=== PATIENT | female | born 1955 | race Caucasian/White ===

== ENCOUNTER 2016-08-26 12:05 | Inpatient (IN) | payer OTHER ==
[~2016-08-26] VITALS: Ht 180.3 cm; Wt 75.7 kg
--- NOTE | 2016-08-26 13:12 | DIAGNOSTIC IMAGING REPORT ---
PROCEDURE: XR CHEST 2 VIEW INDICATION: SHORTNESS OF BREATH TECHNIQUE: PA and lateral view. COMPARISON: Chest x-ray 02/16/2013. FINDINGS: Hyperinflation with small right upper and lower lobe infiltrates. Small right pleural effusion. Stable left upper lobe calcified granuloma. Heart size is normal but there is mild pulmonary vascular congestion. Bony thorax is unremarkable. IMPRESSION: 1. Right upper and lower lobe pneumonia with small right pleural effusion 2. Stable left upper lobe calcified granuloma 3. Mild pulmonary vascular congestion
--- NOTE | 2016-08-26 13:58 | ED ORDER SUMMARY ---
..... Patient: CIERA VELAZQUEZ OrderSheet [facility] VisitID: [id number] [place] [address] 61y, F Registration Date/Time: 08/26/2016 ORDER SHEET Weight: 74.8 kg (stated) Allergies: Latex, Seafood GENERAL ORDERS: Chest 2V (possible pneumonia) Urgent (12:47 08/26/2016 ABlanchette PA-C) (Ack 12:52 IJurca ER Tech1) (13:05 Micaela) RT Evaluation Stat (12:48 08/26/2016 ABlanchette PA-C) (Ack 12:52 IJurca ER Tech1) (13:20 LWhalen R.N.) CBC w Diff Urgent (13:27 08/26/2016 ABlanchette PA-C) (Ack 13:33 IJurca ER Tech1) (14:11 ALawrence ER Tech1) CMP Urgent (13:27 08/26/2016 ABlanchette PA-C) (Ack 13:33 IJurca ER Tech1) (14:11 ALawrence ER Tech1) UA-Culture if indicated Urgent (13:49 08/26/2016 LSullivan R.N. per protocol) (Ack 13:53 IJurca ER Tech1) (13:56 LSullivan R.N.) Blood Culture (Yes) (levaquin) Urgent (14:37 08/26/2016 ABlanchette PA-C) (Ack 14:45 IJurca ER Tech1) (15:00 LSullivan R.N.) Lactic Acid for Sepsis Protocol Urgent (14:38 08/26/2016 ABlanchette PA-C) (Ack 14:45 IJurca ER Tech1) (15:00 LSullivan R.N.) MEDICATION ORDERS: DuoNeb Neb Tx 1 unit dose (NOW) (12:49 08/26/2016 ABlanchette PA-C) (13:20 LWhalen R.N.) DuoNeb Neb Tx 1 unit dose (NOW) (13:17 08/26/2016 ABlanchette PA-C) (13:20 LWhalen R.N.) Levofloxacin PO 500 mg (NOW) (13:50 08/26/2016 ABlanchette PA-C) (13:56 LSullivan R.N.) Prednisone PO 40 mg (NOW) (13:51 08/26/2016 ABlanchette PA-C) (13:56 LSullivan R.N.) Nicoderm Topical 21 mg (NOW) (14:55 08/26/2016 LSullivan R.N. verbal order read back to ABlanchette PA-C) (14:56 LSullivan R.N.) IV FLUIDS: IV Saline Lock (12:37 08/26/2016 LSullivan R.N. verbal order read back to ABlanchette PA-C) (12:38 LSullivan R.N.) IV NS with Normal Saline 1 Liter: initial bolus none -, then 1000 mL/hr for X1 (NOW) (14:37 08/26/2016 ABlanchette PA-C) (14:43 LSullivan R.N.) Ceftriaxone IV 2 gm/50mL (NOW) (14:59 08/26/2016 ABlanchette PA-C) (15:35 LWhalen R.N.) ORDER SHEET NOTES: [Electronically signed by Norma Oconnell R.N. (18:41 08/26/2016)] [Electronically signed by Gayatri Gomes PA-C (00:38 08/27/2016)] [Electronically locked/signed by Norma Oconnell R.N. (18:41 08/26/2016)]
--- NOTE | 2016-08-26 13:58 | ED CLINICAL REPORT ---
Clinical Report - Physicians/Mid Levels [facility] [address] [place] [address] 08/26/2016 12:08 Patient: TEA VELAZQUEZ Time Seen: 12:33; initial patient contact. Arrived- By private vehicle. Historian- patient. HISTORY OF PRESENT ILLNESS Chief Complaint: COUGH, SINUS PAIN, FEVER, CHILLS and MUSCLE ACHES. This started 6 days ago; FEVER, CHILLS, SWEATS and "NOT FEELING WELL". pt with a history of asthma, copd, has been ill for a week, with fever, chills, is a smoker 1ppd, used her nebulizer this morning and had a little improvement in her breathing, is here accompanied by her mother and for evaluation. pt reports she has had pneumonia several times, and is still present and worsening. The illness is described as moderate. The patient has had a cough, difficulty breathing, nasal congestion, sinus pressure and sinus drainage. She has had chills and muscle aches. She has had a subjective fever of 103 F. Similar symptoms previously: Many times. Recent medical care: The patient was seen recently at another facility in a clinic. REVIEW OF SYSTEMS No nausea, vomiting or diarrhea. All systems otherwise negative, except as recorded above. PAST HISTORY See nurses notes. Moderate asthma. Has frequent asthma attacks. Moderate chronic obstructive pulmonary disease. She currently smokes. See old chart. Multiple episodes of pneumonia. Problems: Plantar Fasciitis. Eczema. Contact Dermatitis. URI. Lifestyle / Substance Problems. Fall. Contusion. Tetanus Status. Medications: Albuterol Sulfate HFA Inhalation 1 puff, 4x a day as needed. Singulair Oral 1, daily. Allergies: Latex.(hives) Seafood. SOCIAL HISTORY Heavy tobacco smoker (cigarette)- less than 1 pack per day. No alcohol use or drug use. FAMILY HISTORY Negative. ADDITIONAL NOTES The nursing notes have been reviewed with agreement regarding the chief complaint, HPI, ROS, PMH and patient medications and allergies. PHYSICAL EXAM Vital Signs: 08/26/2016 12:18 BP: 134/51. HR: 132. RR: 24. O2 saturation: 90%. Temp: 99 F. Pain level now: 07/10. Have been reviewed. Tachycardic. Oxygen saturation low. Appearance: Alert. No acute distress. Eyes: Pupils equal, round and reactive to light. Eyes normal inspection. ENT: Ears normal. Nose normal. Pharynx normal. Uvula midline. Neck: Normal inspection. Neck supple. CVS: Tachycardia. Heart sounds normal. Pulses normal. Respiratory: No respiratory distress. Mildly prolonged expirations. Expiratory and inspiratory mild bilateral wheezes diffusely. Bilateral rhonchi present diffusely, anteriorly and posteriorly. Abdomen: Soft and nontender. No organomegaly. Skin: Skin warm and dry. Normal skin color. No rash. Normal skin turgor. Extremities: No lower extremity edema. (has eczema to the arms/hands). Neuro: Oriented X 3. No motor deficit. No sensory deficit. LABS, X-RAYS, AND EKG Chest X-ray: Infiltrate in the right upper lobe. (Name: Tea Velazquez : 1955 MR#: [id number] Ordering Provider: ALBERTO MATOS Exam(s): XR CHEST 2 VIEW Date of Exam: 08/26/2016 __ PROCEDURE: XR CHEST 2 VIEW INDICATION: SHORTNESS OF BREATH TECHNIQUE: PA and lateral view. COMPARISON: Chest x-ray 02/16/2013. FINDINGS: Hyperinflation with small right upper and lower lobe infiltrates. Small right pleural effusion. Stable left upper lobe calcified granuloma. Heart size is normal but there is mild pulmonary vascular congestion. Bony thorax is unremarkable. IMPRESSION: 1. Right upper and lower lobe pneumonia with small right pleural effusion 2. Stable left upper lobe calcified granuloma 3. Mild pulmonary vascular congestion Electronically Final signed by:Awais Edwards MD 08/26/2016 1:12:28 PM Technologist: TRUNG). The X-rays were independently viewed by me, interpreted by the radiologist and contemporaneously by me and discussed with the radiologist. Interpretation time: 13:46. Laboratory Tests: UA-Culture if indicated: (RAFIA: 08/26/2016 13:46) ( WigRcvd 08/26/2016 14:26) Final results Test Result Flag Units (Reference) URINE COLOR DAVI URINE APPEARANCE SL CLOUDY URINE GLUCOSE NEGATIVE (NEGATIVE) URINE BILIRUBIN 1+ (NEGATIVE) URINE KETONE TRACE (NEGATIVE) URINE SPECIFIC GRAVITY >= 1.030 (1.010-1.030) URINE PH 6.0 (5.0-8.0) URINE PROTEIN 3+ (NEGATIVE) URINE UROBILINOGEN 4.0 EU/dL (0.2-1.0) The urobilinogen reagent area may react with interferingsubstances known to react with Raquel's reagent such asp-aminosalicylic acid and sulfonamides. Atypical colorreactions may be obtained in the presence of highconcentrations of p-aminobenzoic acid. The absence ofurobilinogen cannot be determined with this test. URINE NITRITE POSITIVE (NEGATIVE) URINE BLOOD 1+ (NEGATIVE) URINE LEUK ESTERASE TRACE (NEGATIVE) URINE RBC 0-1 rbc/hpf (0-1) URINE WBC 5-10 wbc/hpf (0-1) URINE EPITHELIAL CELLS 1-3 EPI/hpf (0-5) URINE BACTERIA MODERATE (2+ TO 3+) (NONE SEEN) URINE COMMENT CULTURE INDICATED 2+ MUCUSICTO TEST NEGATIVEURINE CULTURES ARE SET-UP BASED ON THE FOLLOWING CRITERIA:POSITIVE NITRITEPOSITIVE LEUKOCYTE ESTERASEGREATER THAN 10 WHITE BLOOD CELLSMODERATE (2+) OR GREATER BACTERIA CBC w Diff: (RAFIA: 08/26/2016 14:07) ( [facility] 08/26/2016 14:37) Final results Test Result Flag Units (Reference) WHITE BLOOD COUNT 12.1 H K/uL (4.5-11.5) RED BLOOD COUNT 4.35 M/uL (4.00-5.20) HEMOGLOBIN 13.3 gm/dL (12.0-16.0) HEMATOCRIT 39.4 % (36.0-46.0) MEAN CELL VOLUME 91 fL (80-100) MEAN CORPUSCULAR HGB 31 pg (26-34) MEAN CORPUSCULAR HGB CONC 34 g/dL (31-37) RED CELL DISTRIBUTION WIDTH 13.3 % (11.6-14.8) PLATELET COUNT 250 K/uL (150-400) NEUTROPHIL % 82.4 H % (50-75) LYMPH % 10.1 L % (25-40) MONO % 6.9 % (3-14) EOSINOPHIL % 0.4 % (0-4) BASOPHIL % 0.2 % (0-2) CMP: (RAFIA: 08/26/2016 14:07) ( MsgRcvd 08/26/2016 14:32) Final results Test Result Flag Units (Reference) GLUCOSE 143 H mg/dL (70-110) BUN 9 mg/dL (7-18) CREATININE 0.9 mg/dL (0.6-1.3) Estimated GFR >60 mL/min Estimated GFR- >60 mL/min Note: Persistent reduction over 3 months in eGFR<60 mL/min/1.73 m2 defines CKD. Patients with eGFR values>=60 mL/min/1.73 m2 may also have CKD if evidence ofpersistent proteinuria. Additional information may be foundat [email or web address].org. SODIUM 136 mmol/L (136-145) POTASSIUM 3.2 L mmol/L (3.5-5.1) CHLORIDE 98 mmol/L (98-107) CARBON DIOXIDE 23 mmol/L (21-32) CALCIUM 8.8 mg/dL (8.5-10.1) TOTAL PROTEIN 7.4 g/dL (6.4-8.2) ALBUMIN 2.9 L g/dL (3.3-5.0) BILIRUBIN, TOTAL 0.7 mg/dL (0.0-1.0) ALKALINE PHOSPHATASE 164 H U/L (46-116) AST (SGOT) 20 U/L (15-37) ALT (SGPT) 25 U/L (12-78) . Pulse Oximetry: 08/26/2016 12:18 O2 saturation: 90%. Interpretation: hypoxemia. PROGRESS AND PROCEDURES Course of Care: Evaluation after repeat exam. discussed inpatient disposition with Dr. Fitch, pt meets SIRS criteria for inpatient stay, low O2% 88-91%, HR 116, RR24 with Right upper and lower lobe pneumonia. pt was give IV NS, ceftriaxone 2gm IV, prednisone 40mg po, and a single dose of levaquin 500mg po. Patient is stable. Physical exam findings are improved. Symptoms better. Call placed to patient's primary care provider [phone] Rayo he states Dr. Thompson is hospitalist engineering document control clerk and should admit the patient under the current agreement with the hospital as he understands it, and states that if he is overwhelmed with admits, he will consent to take the patient. but needs to be cntacted again to clarify. Consult obtained from carpet layer. call placed 14:40. spoke to Dr. Thompson who states we should call Dr. Escobar. Call placed to Dr. Escobar [phone]. Patient/family counseled. Disposition: Admitted. CLINICAL IMPRESSION Moderate persistent asthma with an acute exacerbation and pneumonia. No status asthmaticus. Acute exacerbation of COPD (chronic bronchitis) Bacterial pneumonia with hypoxemia. Vital signs recorded and reviewed; empiric antibiotics given in the ED and prescribed. pt admitted to Dr. Estes. INSTRUCTIONS No strenuous activity. Rest. Drink plenty of fluids. Other diet: avoid all dairy and corn and soy and wheat. Do not smoke. (you have a right upper lobe pneumonia. you have been given Levaquin 500mg daily, as well as a course of prednisone. it is highly recommended that you stop smoking. follow up with your primary care provider this coming week. if you do not improve, you should return to the ER.). Warnings: Further evaluation is necessary. It is very important to follow up with a physician. GENERAL WARNINGS: Return or contact your physician immediately if your condition worsens or changes unexpectedly, if not improving as expected, or if other problems arise. Specifically return if breathing difficulty worsens or fails to improve. Your Current Medications: CONTINUE TAKING THE FOLLOWING MEDICATIONS: Albuterol Sulfate HFA Inhalation : 1 puff 4x a day, prn. Singulair Oral : 1 daily. Prescription Medications: Prednisone 20 mg: take 2 orally every day for 5 days. Dispense ten (10). No refills. Levaquin 500 mg: take 1 tab orally every day for 10 days. No refills. Substitution is permissible. Tessalon Perles 100 mg: take 1 orally every 8 hours as needed for cough. Dispense twenty (20). No refills. Substitution is permissible. Flovent HFA oral inhaler 220 mcg/spray: inhale 2 puffs every 24 hours for 4 weeks. Rinse mouth after use. Dispense one (1) unit. One refill. Substitution is permissible. Follow-up: Follow up with your doctor Sunday even if well. Reason for referral: pneumonia, copd, smoker. Understanding of the discharge instructions verbalized by patient and family. (Electronically signed by Alberto Matos PA-C 08/27/2016 0:38)
--- NOTE | 2016-08-26 13:58 | ED CLINICAL REPORT ---
Clinical Report - Physicians/Mid Levels [facility] [address] [place] [address] 08/26/2016 12:08 Patient: TEA VELAZQUEZ Time Seen: 12:33; initial patient contact. Arrived- By private vehicle. Historian- patient. HISTORY OF PRESENT ILLNESS Chief Complaint: COUGH, SINUS PAIN, FEVER, CHILLS and MUSCLE ACHES. This started 6 days ago; FEVER, CHILLS, SWEATS and "NOT FEELING WELL". pt with a history of asthma, copd, has been ill for a week, with fever, chills, is a smoker 1ppd, used her nebulizer this morning and had a little improvement in her breathing, is here accompanied by her mother and for evaluation. pt reports she has had pneumonia several times, and is still present and worsening. The illness is described as moderate. The patient has had a cough, difficulty breathing, nasal congestion, sinus pressure and sinus drainage. She has had chills and muscle aches. She has had a subjective fever of 103 F. Similar symptoms previously: Many times. Recent medical care: The patient was seen recently at another facility in a clinic. REVIEW OF SYSTEMS No nausea, vomiting or diarrhea. All systems otherwise negative, except as recorded above. PAST HISTORY See nurses notes. Moderate asthma. Has frequent asthma attacks. Moderate chronic obstructive pulmonary disease. She currently smokes. See old chart. Multiple episodes of pneumonia. Problems: Plantar Fasciitis. Eczema. Contact Dermatitis. URI. Lifestyle / Substance Problems. Fall. Contusion. Tetanus Status. Medications: Albuterol Sulfate HFA Inhalation 1 puff, 4x a day as needed. Singulair Oral 1, daily. Allergies: Latex.(hives) Seafood. SOCIAL HISTORY Heavy tobacco smoker (cigarette)- less than 1 pack per day. No alcohol use or drug use. FAMILY HISTORY Negative. ADDITIONAL NOTES The nursing notes have been reviewed with agreement regarding the chief complaint, HPI, ROS, PMH and patient medications and allergies. PHYSICAL EXAM Vital Signs: 08/26/2016 12:18 BP: 134/51. HR: 132. RR: 24. O2 saturation: 90%. Temp: 99 F. Pain level now: 07/10. Have been reviewed. Tachycardic. Oxygen saturation low. Appearance: Alert. No acute distress. Eyes: Pupils equal, round and reactive to light. Eyes normal inspection. ENT: Ears normal. Nose normal. Pharynx normal. Uvula midline. Neck: Normal inspection. Neck supple. CVS: Tachycardia. Heart sounds normal. Pulses normal. Respiratory: No respiratory distress. Mildly prolonged expirations. Expiratory and inspiratory mild bilateral wheezes diffusely. Bilateral rhonchi present diffusely, anteriorly and posteriorly. Abdomen: Soft and nontender. No organomegaly. Skin: Skin warm and dry. Normal skin color. No rash. Normal skin turgor. Extremities: No lower extremity edema. (has eczema to the arms/hands). Neuro: Oriented X 3. No motor deficit. No sensory deficit. LABS, X-RAYS, AND EKG Chest X-ray: Infiltrate in the right upper lobe. (Name: Tea Velazquez : 1955 MR#: [id number] Ordering Provider: ALBERTO MATOS Exam(s): XR CHEST 2 VIEW Date of Exam: 08/26/2016 __ PROCEDURE: XR CHEST 2 VIEW INDICATION: SHORTNESS OF BREATH TECHNIQUE: PA and lateral view. COMPARISON: Chest x-ray 02/16/2013. FINDINGS: Hyperinflation with small right upper and lower lobe infiltrates. Small right pleural effusion. Stable left upper lobe calcified granuloma. Heart size is normal but there is mild pulmonary vascular congestion. Bony thorax is unremarkable. IMPRESSION: 1. Right upper and lower lobe pneumonia with small right pleural effusion 2. Stable left upper lobe calcified granuloma 3. Mild pulmonary vascular congestion Electronically Final signed by:Awais Edwards MD 08/26/2016 1:12:28 PM Technologist: TRUNG). The X-rays were independently viewed by me, interpreted by the radiologist and contemporaneously by me and discussed with the radiologist. Interpretation time: 13:46. Laboratory Tests: UA-Culture if indicated: (RAFIA: 08/26/2016 13:46) ( SdgRcvd 08/26/2016 14:26) Final results Test Result Flag Units (Reference) URINE COLOR DAVI URINE APPEARANCE SL CLOUDY URINE GLUCOSE NEGATIVE (NEGATIVE) URINE BILIRUBIN 1+ (NEGATIVE) URINE KETONE TRACE (NEGATIVE) URINE SPECIFIC GRAVITY >= 1.030 (1.010-1.030) URINE PH 6.0 (5.0-8.0) URINE PROTEIN 3+ (NEGATIVE) URINE UROBILINOGEN 4.0 EU/dL (0.2-1.0) The urobilinogen reagent area may react with interferingsubstances known to react with Raquel's reagent such asp-aminosalicylic acid and sulfonamides. Atypical colorreactions may be obtained in the presence of highconcentrations of p-aminobenzoic acid. The absence ofurobilinogen cannot be determined with this test. URINE NITRITE POSITIVE (NEGATIVE) URINE BLOOD 1+ (NEGATIVE) URINE LEUK ESTERASE TRACE (NEGATIVE) URINE RBC 0-1 rbc/hpf (0-1) URINE WBC 5-10 wbc/hpf (0-1) URINE EPITHELIAL CELLS 1-3 EPI/hpf (0-5) URINE BACTERIA MODERATE (2+ TO 3+) (NONE SEEN) URINE COMMENT CULTURE INDICATED 2+ MUCUSICTO TEST NEGATIVEURINE CULTURES ARE SET-UP BASED ON THE FOLLOWING CRITERIA:POSITIVE NITRITEPOSITIVE LEUKOCYTE ESTERASEGREATER THAN 10 WHITE BLOOD CELLSMODERATE (2+) OR GREATER BACTERIA CBC w Diff: (RAFIA: 08/26/2016 14:07) ( [facility] 08/26/2016 14:37) Final results Test Result Flag Units (Reference) WHITE BLOOD COUNT 12.1 H K/uL (4.5-11.5) RED BLOOD COUNT 4.35 M/uL (4.00-5.20) HEMOGLOBIN 13.3 gm/dL (12.0-16.0) HEMATOCRIT 39.4 % (36.0-46.0) MEAN CELL VOLUME 91 fL (80-100) MEAN CORPUSCULAR HGB 31 pg (26-34) MEAN CORPUSCULAR HGB CONC 34 g/dL (31-37) RED CELL DISTRIBUTION WIDTH 13.3 % (11.6-14.8) PLATELET COUNT 250 K/uL (150-400) NEUTROPHIL % 82.4 H % (50-75) LYMPH % 10.1 L % (25-40) MONO % 6.9 % (3-14) EOSINOPHIL % 0.4 % (0-4) BASOPHIL % 0.2 % (0-2) CMP: (RAFIA: 08/26/2016 14:07) ( MsgRcvd 08/26/2016 14:32) Final results Test Result Flag Units (Reference) GLUCOSE 143 H mg/dL (70-110) BUN 9 mg/dL (7-18) CREATININE 0.9 mg/dL (0.6-1.3) Estimated GFR >60 mL/min Estimated GFR- >60 mL/min Note: Persistent reduction over 3 months in eGFR<60 mL/min/1.73 m2 defines CKD. Patients with eGFR values>=60 mL/min/1.73 m2 may also have CKD if evidence ofpersistent proteinuria. Additional information may be foundat [email or web address].org. SODIUM 136 mmol/L (136-145) POTASSIUM 3.2 L mmol/L (3.5-5.1) CHLORIDE 98 mmol/L (98-107) CARBON DIOXIDE 23 mmol/L (21-32) CALCIUM 8.8 mg/dL (8.5-10.1) TOTAL PROTEIN 7.4 g/dL (6.4-8.2) ALBUMIN 2.9 L g/dL (3.3-5.0) BILIRUBIN, TOTAL 0.7 mg/dL (0.0-1.0) ALKALINE PHOSPHATASE 164 H U/L (46-116) AST (SGOT) 20 U/L (15-37) ALT (SGPT) 25 U/L (12-78) . Pulse Oximetry: 08/26/2016 12:18 O2 saturation: 90%. Interpretation: hypoxemia. PROGRESS AND PROCEDURES Course of Care: Evaluation after repeat exam. discussed inpatient disposition with Dr. Fitch, pt meets SIRS criteria for inpatient stay, low O2% 88-91%, HR 116, RR24 with Right upper and lower lobe pneumonia. pt was give IV NS, ceftriaxone 2gm IV, prednisone 40mg po, and a single dose of levaquin 500mg po. Patient is stable. Physical exam findings are improved. Symptoms better. Call placed to patient's primary care provider [phone] Rayo he states Dr. Thompson is hospitalist front end architect and should admit the patient under the current agreement with the hospital as he understands it, and states that if he is overwhelmed with admits, he will consent to take the patient. but needs to be cntacted again to clarify. Consult obtained from box bender. call placed 14:40. spoke to Dr. Thompson who states we should call Dr. Escobar. Call placed to Dr. Escobar 1425. Patient/family counseled. Disposition: Admitted. CLINICAL IMPRESSION Moderate persistent asthma with an acute exacerbation and pneumonia. No status asthmaticus. Acute exacerbation of COPD (chronic bronchitis) Bacterial pneumonia with hypoxemia. Vital signs recorded and reviewed; empiric antibiotics given in the ED and prescribed. pt admitted to Dr. Estes. INSTRUCTIONS No strenuous activity. Rest. Drink plenty of fluids. Other diet: avoid all dairy and corn and soy and wheat. Do not smoke. (you have a right upper lobe pneumonia. you have been given Levaquin 500mg daily, as well as a course of prednisone. it is highly recommended that you stop smoking. follow up with your primary care provider this coming week. if you do not improve, you should return to the ER.). Warnings: Further evaluation is necessary. It is very important to follow up with a physician. GENERAL WARNINGS: Return or contact your physician immediately if your condition worsens or changes unexpectedly, if not improving as expected, or if other problems arise. Specifically return if breathing difficulty worsens or fails to improve. Your Current Medications: CONTINUE TAKING THE FOLLOWING MEDICATIONS: Albuterol Sulfate HFA Inhalation : 1 puff 4x a day, prn. Singulair Oral : 1 daily. Prescription Medications: Prednisone 20 mg: take 2 orally every day for 5 days. Dispense ten (10). No refills. Levaquin 500 mg: take 1 tab orally every day for 10 days. No refills. Substitution is permissible. Tessalon Perles 100 mg: take 1 orally every 8 hours as needed for cough. Dispense twenty (20). No refills. Substitution is permissible. Flovent HFA oral inhaler 220 mcg/spray: inhale 2 puffs every 24 hours for 4 weeks. Rinse mouth after use. Dispense one (1) unit. One refill. Substitution is permissible. Follow-up: Follow up with your doctor Sunday even if well. Reason for referral: pneumonia, copd, smoker. Understanding of the discharge instructions verbalized by patient and family. (Electronically signed by Alberto Matos PA-C 08/27/2016 0:38)
--- NOTE | 2016-08-26 13:58 | ED NURSING NOTES ---
Clinical Report - Nurses [facility] [address] [place] [address] 08/26/2016 12:08 Patient: CIERA VELAZQUEZ TRIAGE Triage time 12:18. Acuity: LEVEL 3. Chief Complaint: FEVER, CHILLS, SWEATS and "NOT FEELING WELL". Alert. --12:26 Norma Oconnell R.N. 12:18 08/26/16. BP: 134/51. HR: 132. RR: 24. O2 saturation: 90% on room air. Temp: 99 F. Pain level now: 07/10. Additional comments: O2 placed at 2LNC. --12:26 Norma Oconnell R.N. Weight: 74.8 kg stated. Height/Length: 71 inches Per Patient. BMI: 23. --12:22 Norma Oconnell R.N. Medications Albuterol Sulfate HFA Inhalation 1 puff, 4x a day as needed. Singulair Oral 1, daily. --12:25 Norma Oconnell R.N. Allergies Latex.(hives) Seafood. --12:25 Norma Oconnell R.N. History Arrived by private vehicle. Historian: patient. Accompanied by spouse. Primary physician (Shawn). Onset. (6 days ago). She has had a sore throat and a cough and headache. Treatment MECHANICAL MAINTENANCE TECHNICIAN: (Aleve). PAST MEDICAL HX: The patient is post-menopausal. SOCIAL HX: Heavy tobacco smoker (cigarette)- 1 pack per day. No alcohol use or drug use. The patient was not exposed to MRSA. NUTRITIONAL RISK ASSESSMENT: The nutritional risk assessment revealed no deficiencies. FUNCTIONAL ASSESSMENT: Functional assessment: no impairments noted. ABUSE ASSESSMENT: Abuse assessment: ('yes") The patient was asked "Do you feel safe in your home?". --12:26 Norma Oconnell R.N. PROBLEMS: Plantar Fasciitis. Eczema. Contact Dermatitis. URI. Lifestyle / Substance Problems. Fall. Contusion. Diverticulitis. Bronchitis. Pneumonia. Asthma. COPD - Chronic Obstructive Pulmonary Disease. --12:24 Norma Oconnell R.N. ADDITIONAL SURGERIES: Colon surgery . . Hysterectomy. Leg surgery. --12:24 Norma Oconnell R.N. Interventions ID band on patient. To room. --12:26 Norma Oconnell R.N. PHYSICAL ASSESSMENT 12:38 08/26/16. Patient gowned. GENERAL / NEURO / PSYCH: Alert. Oriented X 4. Appears anxious. --12:38 Norma Oconnell R.N. NURSING PROGRESS NOTES 12:38 08/26/2016 Site #1 started via IV in the right hand with an 20g angiocath, with aseptic technique and good blood return; one attempt. Saline lock flushed with 10 mL saline (unable to draw any blood from IV SITE). --12:38 Norma Oconnell R.N. 12:38 08/26/16. Patient identifiers checked. Call light placed in reach. Bed placed in lowest position. Patient ready for evaluation- chart flagged. --12:38 Norma Oconnell R.N. 13:10 08/26/2016 Duoneb (Ipratropium-Albuterol) Neb TX Nebulizer 1 unit dose given. Given by the respiratory therapist. Allergies verified and confirmed 5 rights. --13:20 Tiffanie Hutchinson R.N. 13:20 08/26/2016 Duoneb (Ipratropium-Albuterol) Neb TX Nebulizer 1 unit dose given. Given by the respiratory therapist. Allergies verified and confirmed 5 rights. --13:20 Tiffanie Hutchinson R.N. 13:49 08/26/16. Patient ID band checked for patient name and birthdate: patient confirmed. Clean catch urine collected with return of destini-colored clear urine; sample sent to lab. --13:49 Norma Oconnell R.N. 13:56 08/26/2016 Levofloxacin PO 500 mg given. Allergies verified and confirmed 5 rights. --13:56 Norma Oconnell R.N. 13:56 08/26/2016 Prednisone PO 40 mg given. Confirmed 5 rights. --13:56 Norma Oconnell R.N. 14:35 08/26/16. BP: 106/62. HR: 116. RR: 20. O2 saturation: 88% on room air. Temp: 98.2 F. Pain level now: 0/10. --14:36 Norma Oconnell R.N. 14:43 08/26/2016 Started bag #1 1000 mL IV Fluids IV NS (Saline); at 1000 mL/hr via site #1 via IV pump. Confirmed 5 rights. --14:43 Norma Oconnell R.N. 14:43 08/26/16. HR: 110. O2 saturation: 94% on nasal cannula at 3 liters/minute. --14:44 Norma Oconnell R.N. 14:56 08/26/2016 NICODERM Topical 21 mg. Applied to the right upper arm. Allergies verified and confirmed 5 rights. --14:56 Norma Oconnell R.N. 15:35 08/26/2016 Started 2 gm of Ceftriaxone IVPB in bag #1 50 mL; at 150 mL/hr over 1 hour(s) via site #1 via IV pump. Allergies verified and confirmed 5 rights. IV patency established. IV site checked: no pain, redness, or swelling. IV flushed thoroughly pre- and post-medication administration. --15:35 Tiffanie Hutchinson R.N. 15:36 08/26/2016 IV Fluids IV NS Discontinued: bag #1 infused. Total amount infused: 1000 mL. IV patency established. IV site checked: no pain, redness, or swelling. IV flushed thoroughly. --15:37 Tiffanie Hutchinson R.N. ( Dr Estes with patient). --17:05 Norma Oconnell R.N. Overall patient status is improved- she states feels better. --17:27 Norma Oconnell R.N. 17:27 08/26/16. BP: 119/59. HR: 101. RR: 18. O2 saturation: 93% on nasal cannula at 3 liters/minute. --17:27 Norma Oconnell R.N. DISPOSITION / DISCHARGE 18:30 08/26/16. Report was given to a nurse via a phone call. Report included patient's care, treatment, medications, reviewed medication reconcilliation, and condition (including any recent changes or anticipated changes). All questions were answered. Report was acknowledged and care was transferred. --18:30 Norma Oconnell R.N. ( Pt's dinner tray was sent to her room, 201). --18:30 Norma Oconnell R.N. 18:30 08/26/16. BP: 119/50. HR: 101. RR: 18. O2 saturation: 94%. Pain level now: 0/10. --18:33 Norma Oconnell R.N. 18:40 08/26/16. ( F.T. transported pt to floor, O2 hooked up to O2 tank at 2L per minute.). --18:40 Norma Oconnell R.N. Departure time: 18:40. --18:40 Norma Oconnell R.N. Locked/Released at 08/26/2016 18:41 by Norma Oconnell R.N.
--- NOTE | 2016-08-26 13:58 | ED ORDER SUMMARY ---
..... Patient: CIERA VELAZQUEZ OrderSheet [facility] VisitID: [id number] [place] [address] 61y, F Registration Date/Time: 08/26/2016 ORDER SHEET Weight: 74.8 kg (stated) Allergies: Latex, Seafood GENERAL ORDERS: Chest 2V (possible pneumonia) Urgent (12:47 08/26/2016 ABlanchette PA-C) (Ack 12:52 IJurca ER Tech1) (13:05 Micaela) RT Evaluation Stat (12:48 08/26/2016 ABlanchette PA-C) (Ack 12:52 IJurca ER Tech1) (13:20 LWhalen R.N.) CBC w Diff Urgent (13:27 08/26/2016 ABlanchette PA-C) (Ack 13:33 IJurca ER Tech1) (14:11 ALawrence ER Tech1) CMP Urgent (13:27 08/26/2016 ABlanchette PA-C) (Ack 13:33 IJurca ER Tech1) (14:11 ALawrence ER Tech1) UA-Culture if indicated Urgent (13:49 08/26/2016 LSullivan R.N. per protocol) (Ack 13:53 IJurca ER Tech1) (13:56 LSullivan R.N.) Blood Culture (Yes) (levaquin) Urgent (14:37 08/26/2016 ABlanchette PA-C) (Ack 14:45 IJurca ER Tech1) (15:00 LSullivan R.N.) Lactic Acid for Sepsis Protocol Urgent (14:38 08/26/2016 ABlanchette PA-C) (Ack 14:45 IJurca ER Tech1) (15:00 LSullivan R.N.) MEDICATION ORDERS: DuoNeb Neb Tx 1 unit dose (NOW) (12:49 08/26/2016 ABlanchette PA-C) (13:20 LWhalen R.N.) DuoNeb Neb Tx 1 unit dose (NOW) (13:17 08/26/2016 ABlanchette PA-C) (13:20 LWhalen R.N.) Levofloxacin PO 500 mg (NOW) (13:50 08/26/2016 ABlanchette PA-C) (13:56 LSullivan R.N.) Prednisone PO 40 mg (NOW) (13:51 08/26/2016 ABlanchette PA-C) (13:56 LSullivan R.N.) Nicoderm Topical 21 mg (NOW) (14:55 08/26/2016 LSullivan R.N. verbal order read back to ABlanchette PA-C) (14:56 LSullivan R.N.) IV FLUIDS: IV Saline Lock (12:37 08/26/2016 LSullivan R.N. verbal order read back to ABlanchette PA-C) (12:38 LSullivan R.N.) IV NS with Normal Saline 1 Liter: initial bolus none -, then 1000 mL/hr for X1 (NOW) (14:37 08/26/2016 ABlanchette PA-C) (14:43 LSullivan R.N.) Ceftriaxone IV 2 gm/50mL (NOW) (14:59 08/26/2016 ABlanchette PA-C) (15:35 LWhalen R.N.) ORDER SHEET NOTES: [Electronically signed by Norma Oconnell R.N. (18:41 08/26/2016)] [Electronically signed by Gayatri Gomes PA-C (00:38 08/27/2016)] [Electronically locked/signed by Norma Oconnell R.N. (18:41 08/26/2016)]
--- NOTE | 2016-08-26 18:08 | Progress Note ---
Subjective General Admission History and Physical Examination Acute Care In-Patient Patient Name: Tea Guevara Admission Date: 08/26/2016 Primary Care Provider: Dr. Escobar and Tana Mattson PAC Attending Physician: Antony Thompson M.D. Admitting Physician: Prateek Estes MD] Code Status: Full code Room: SUBJECTIVE Historian: Patient's gave a Good formal history Reliability: Good Reliability Chief Complaint: Shortness of breath Coughing Wheeze Fever History of Present Illness: The patient is a 61-year-old white female with a past medical history of COPD, osteoarthritic joint disease, eczema who presented to the [facility] emergency Department earlier in the day with shortness of breath, cough, wheeze. Patient reports of an onset with cough, fevers, shortness of breath since 5 days previous. Patient had increased her albuterol usage over the past 4 days. Patient reported no improvement on home therapy. Therefore, came into the urgent care clinic to review and discuss alternatives to her home care. From the urgent care. Patient was sent to [facility] emergency Department. Emergency department reviewed the examination, labs and x-rays and identified infiltrates in the right upper and lower lobe, associated tachycardic and tachypnea on exam. Elevated white count 12.1 and failure of outpatient care. Patient is admitted under SIRS criteria with pneumonia and COPD exacerbation. PAST MEDICAL HISTORY Illnesses: 1. COPD 2. Eczema 3. Osteoarthritis of the Lower extremity Allergies: 1. Antibiotic, that is no longer on the market Medications: 1. Ventolin 1-2 puffs every 4 hours as needed for cough and wheeze 2. Advil for pain Surgery: 1. Bowel resection 2004 2. Hysterectomy 20 years ago 3. 30+ years ago 4. Right lower extremity neuroma removal Injuries: 1. Bilateral foot injury related to work and activities. Currently on disability from work. Hospitalizations: 1. Hospitalization [facility] for pneumonia. Previous to that was for bowel resection. FAMILY HISTORY Parents: 1. Father, at the age of 59 due to heart disease, 2. Mother, currently living; no overt health history Children: 1. 3 children Other significant family history: None SOCIAL HISTORY 1. Marital Status: 30+ years marriage Dusty 2. [employer]: Not known 3. Education: High school 4. Employment History: As restaurant employee for multiple years; full-time disability due to lower extremity injury 5. Occupational health exposures: Unknown HABITS 1. Tobacco: History of tobacco smoking; 20+ years of smoking 2. Drugs: None 3. Alcohol: None 4. Caffeine: Intermittent HEALTH SUPERVISION Item/Test Followed by primary care provider IMMUNIZATIONS: Detailed record not available ADVANCED DIRECTIVES: 1. Living well: None 2. POLST: None 3. Code Status: Full code; call family and Dusty to bedside 4. Durable Power Carpet Technician Health care: Unavailable 5. Donor card: Unknown REVIEW OF SYSTEMS Remarkable for those things stated in the history of present illness and past medical history. Review of system completed with the following notable findings : ROS Constitutional Fever, Weakness. Eyes Denies: Vision Change. Respiratory Cough, SOB w/exertion, Wheezing, Pleuritic Pain. Cardiovascular Other (tachycardia). Gastrointestinal Denies: Abdominal Pain, Diarrhea. Musculoskeletal Back Pain, Other (lower extremity pain). Skin Other (eczema). Neurological Denies: Incoordination, Change in speech, Confusion. Physical Exam Vital Signs / I&Os Vital Signs Date Time Temp Pulse Resp B/P Pulse O2 O2 Flow FiO2 Ox Delivery Rate 08/26 1753 3.0 08/26 1320 3.0 08/26 1312 2.0 Pressure 134/51, heart rate 110, respiratory rate 22, O2 sats 93%, 2 L nasal cannula General Appearance Oriented X3, Cooperative, Mild distress HEENT Atraumatic, EOMI Lungs sonorous rhonchi bilaterally. Rales, right upper and lower lobe End- expiratory wheeze upper and lower bilateral Neck No JVD Cardiovascular Regular rate and rhythm, Normal S1 and S2, tachycardia Abdomen Soft, No tenderness, No rebound Rectal deferred Extremities edematous changes in the upper and lower extremity. Hyper erythema changes in the bilateral hands and wrists along with hyperkeratosis, signs of eczema, bilateral wrists and hands. Hyperkeratosis in the lower extremity. Skin skin is peeling rough in the upper or lower extremity signs of eczema; pre- dominantly on hands and wrists. Neurological Normal speech Psych/Mental Status Mental status normal LAB Results Laboratory Tests 08/26 08/26 08/26 1346 1407 1457 Chemistry Plasma Sodium (136 - 145 mmol/L) 136 Plasma Potassium (3.5 - 5.1 mmol/L) 3.2 Plasma Chloride (98 - 107 mmol/L) 98 CO2 (Enzymatic) (21 - 32 mmol/L) 23 BUN (7 - 18 mg/dL) 9 Creatinine (0.6 - 1.3 mg/dL) 0.9 Est GFR ( Amer) (mL/min) >60 Est GFR (Non-Af Amer) (mL/min) >60 Glucose (70 - 110 mg/dL) 143 Lactic Acid (0.4 - 2.0 mmol/L) 2.0 Plasma Calcium (8.5 - 10.1 mg/dL) 8.8 Total Bilirubin (0.0 - 1.0 mg/dL) 0.7 AST (15 - 37 U/L) 20 ALT (12 - 78 U/L) 25 Alkaline Phosphatase (46 - 116 U/L) 164 Total Protein (6.4 - 8.2 g/dL) 7.4 Albumin (3.3 - 5.0 g/dL) 2.9 Hematology WBC (4.5 - 11.5 K/uL) 12.1 RBC (4.00 - 5.20 M/uL) 4.35 Hgb (12.0 - 16.0 gm/dL) 13.3 Hct (36.0 - 46.0 %) 39.4 MCV (80 - 100 fL) 91 MCH (26 - 34 pg) 31 RDW (11.6 - 14.8 %) 13.3 Neut % (Auto) (50 - 75 %) 82.4 Lymph % (Auto) (25 - 40 %) 10.1 [place] % (Auto) (3 - 14 %) 6.9 Eos % (Auto) (0 - 4 %) 0.4 Baso % (Auto) (0 - 2 %) 0.2 Plt Count, EDTA (150 - 400 K/uL) 250 PUBS MCHC (31 - 37 g/dL) 34 Urines Urine Color DAVI Urine Appearance SL CLOUDY Urine pH (5.0 - 8.0) 6.0 Ur Specific Hunt (1.010 - 1.030) >= 1.030 Urine Protein (NEGATIVE) 3+ Urine Ketones (NEGATIVE) TRACE Urine Blood (NEGATIVE) 1+ Urine Nitrite (NEGATIVE) POSITIVE Urine Bilirubin (NEGATIVE) 1+ Urine Urobilinogen (0.2 - 1.0 EU/dL) 4.0 Ur Leukocyte Esterase (NEGATIVE) TRACE Urine RBC (0 - 1 rbc/hpf) 0-1 Urine WBC (0 - 1 wbc/hpf) 5-10 Ur Epithelial Cells (0 - 5 EPI/hpf) 1-3 Urine Bacteria (NONE SEEN) MODERATE (2+ TO 3+) Urine Glucose (NEGATIVE) NEGATIVE Urine Comment CULTURE INDICATED Microbiology Date/Time Procedure - Status Source Growth 08/26 174 Respiratory Culture - ORD SPUTUM 08/26 1744 Culture and Gram Stain - ORD SPUTUM 08/26 1457 Blood Culture - RECD BLOOD 08/26 1346 Urine Culture - RECD URINE CC Imaging Chest x-ray 08/26/2016 IMPRESSION: 1. Right upper and lower lobe pneumonia with small right pleural effusion 2. Stable left upper lobe calcified granuloma 3. Mild pulmonary vascular congestion Assessment and Plan Problem List 1. COPD (chronic obstructive pulmonary disease) Plan Service criteria with COPD and right upper and lower lobe pneumonia. The long history of smoking. Patient on disability from work due to pulmonary status and lower extremity. Patient continues to have shortness of breath with activity. Progressive worsening with recent onset of illness. She was fevers along with intolerance to activity due to shortness of breath. Patient started SIRS protocol. Serial lab values including White cell count and Lactic acid Starting Antibiotics including cephalosporins and fluoroquinolones Following blood cultures. Consistent findings suggestive of right upper and lower lobe pneumonia. Community-acquired pneumonia. Monitor vitals and subjective progress. Discharge home with appropriate by mouth therapy. Smoking cessation encouraged. May consider home O2 based on O2 usage. Keep the O2 sats above 90-92%. Patient is on a nicotine patch while inpatient Long-standing COPD Duo.- Nebs every 6 hours, along with albuterol as needed Continue the Solu-Medrol 60 mg every 8 hours Light hydration 2. SIRS (systemic inflammatory response syndrome) Plan As discussed; SIRS criteria Blood cultures, urinary cultures Dual coverage antibiotic Serial white count in monitor vitals Maintaining adequate hydration Treat pneumonia. Continue with O2 for maintaining adequate oxygen load. 3. SOB (shortness of breath) Plan Shortness of breath with activity. Acute worsening with recent illness History of COPD, now with COPD exacerbation and SIRS Antibiotic therapy along with oxygen support and additional her with Cipro. E&M Codes Rounding: Inpt-High/72397 Admission: Inpt-High/59967
[2016-08-26 18:58] VITALS: BP 133/68
--- NOTE | 2016-08-26 19:41 | Progress Note ---
Subjective General ADVANCED CARE PLAN History of Present Illness 61-year-old white female with a past medical history of COPD, osteoarthritic joint disease, eczema who presented to the [facility] emergency Department earlier in the day with shortness of breath, cough, wheeze. Emergency department reviewed and examination, labs and x-rays with notable infiltrates in the right upper and lower lobe, associated tachycardic and tachypnea on exam. Elevated white count 12.1 and failure of outpatient care. Patient is admitted under SIRS criteria with pneumonia and COPD exacerbation. A discussion was undertaken with the patient regarding previous advance care arrangements/decisions. The following advanced directives were noted by the patient and discussed with me at the time of admission. ADVANCED DIRECTIVES: 1. Living well: None 2. POLST: None 3. Code Status: Full code; call family and Dusty to bedside 4. Durable Power Geek Squad Manager Health care: Unavailable 5. Donor card: Unknown The patient has expressed interest in not pursuing any form of resuscitation at this time. She has opted not to pursue intubation/mechanical ventilation, CPR, electrical cardioversion, or life-sustaining efforts involving drugs at the time of cardiopulmonary arrest. The patient's wishes were documented in the chart and orders regarding the patient's wishes entered into the [employer] CPOE system. The "Advance Care Plan Document" was not distributed to patient to discuss with her family. Less than 30 minutes was spent in performing the above tasks and documentation of the patient's advanced care plan.
--- NOTE | 2016-08-26 19:41 | Progress Note ---
Subjective General ADVANCED CARE PLAN History of Present Illness 61-year-old white female with a past medical history of COPD, osteoarthritic joint disease, eczema who presented to the [facility] emergency Department earlier in the day with shortness of breath, cough, wheeze. Emergency department reviewed and examination, labs and x-rays with notable infiltrates in the right upper and lower lobe, associated tachycardic and tachypnea on exam. Elevated white count 12.1 and failure of outpatient care. Patient is admitted under SIRS criteria with pneumonia and COPD exacerbation. A discussion was undertaken with the patient regarding previous advance care arrangements/decisions. The following advanced directives were noted by the patient and discussed with me at the time of admission. ADVANCED DIRECTIVES: 1. Living well: None 2. POLST: None 3. Code Status: Full code; call family and Dusty to bedside 4. Durable Power Business Performance Advisor Health care: Unavailable 5. Donor card: Unknown The patient has expressed interest in not pursuing any form of resuscitation at this time. She has opted not to pursue intubation/mechanical ventilation, CPR, electrical cardioversion, or life-sustaining efforts involving drugs at the time of cardiopulmonary arrest. The patient's wishes were documented in the chart and orders regarding the patient's wishes entered into the [employer] CPOE system. The "Advance Care Plan Document" was not distributed to patient to discuss with her family. Less than 30 minutes was spent in performing the above tasks and documentation of the patient's advanced care plan.
[2016-08-26 22:18] VITALS: BP 103/59
--- NOTE | 2016-08-27 00:39 | ED MED RECONCILIATION SUMMARY ---
Patient: CIERA VELAZQUEZ Medication Reconciliation Report [facility] VisitID: [id number] [place] [address] 61y, F Registration Date/Time: 08/26/2016 Weight: 74.8 kg Height/Length: 71 in. BMI: 23.0 ALLERGIES: Latex, Seafood The patient's Home Medications are listed below: CONTINUE TAKING THE FOLLOWING MEDICATIONS: Albuterol Sulfate HFA Inhalation 1 puff, 4x a day Singulair Oral 1, daily The source(s) of the original Home Medication information: Not obtained. The following Medications were given to the patient in the Emergency Department: Duoneb [Neb Tx] Neb TX 1 unit dose, administered: 08/26/2016 1:10:00 PM Duoneb [Neb Tx] Neb TX 1 unit dose, administered: 08/26/2016 1:20:00 PM Levofloxacin [PO] PO 500 mg, administered: 08/26/2016 1:56:00 PM Prednisone [PO] PO 40 mg, administered: 08/26/2016 1:56:00 PM IV NS IV Fluids bolus 0, then 1000 mL/hr, administered: 08/26/2016 2:43:00 PM NICODERM [TOPICAL] Topical 21 mg, administered: 08/26/2016 2:56:00 PM Ceftriaxone [IVPB] IVPB bolus 0, then 2 gm 150 mL/hr, administered: 08/26/2016 3:35:00 PM The following Medications were prescribed to the patient: Prednisone 20 mg: take 2 orally every day for 5 days. Dispense ten (10). No refills. -- Gayatri Gomes PA-C Levaquin 500 mg: take 1 tab orally every day for 10 days. No refills. Substitution is permissible. -- Gayatri Gomes PA-C Tessalon Perles 100 mg: take 1 orally every 8 hours as needed for cough. Dispense twenty (20). No refills. Substitution is permissible. -- Gayatri Gomes PA-C Flovent HFA oral inhaler 220 mcg/spray: inhale 2 puffs every 24 hours for 4 weeks. Rinse mouth after use. Dispense one (1) unit. One refill. Substitution is permissible. -- Gayatri Gomes PA-C
--- NOTE | 2016-08-27 00:39 | ED MED RECONCILIATION SUMMARY ---
Patient: CIERA VELAZQUEZ Medication Reconciliation Report [facility] VisitID: [id number] [place] [address] 61y, F Registration Date/Time: 08/26/2016 Weight: 74.8 kg Height/Length: 71 in. BMI: 23.0 ALLERGIES: Latex, Seafood The patient's Home Medications are listed below: CONTINUE TAKING THE FOLLOWING MEDICATIONS: Albuterol Sulfate HFA Inhalation 1 puff, 4x a day Singulair Oral 1, daily The source(s) of the original Home Medication information: Not obtained. The following Medications were given to the patient in the Emergency Department: Duoneb [Neb Tx] Neb TX 1 unit dose, administered: 08/26/2016 1:10:00 PM Duoneb [Neb Tx] Neb TX 1 unit dose, administered: 08/26/2016 1:20:00 PM Levofloxacin [PO] PO 500 mg, administered: 08/26/2016 1:56:00 PM Prednisone [PO] PO 40 mg, administered: 08/26/2016 1:56:00 PM IV NS IV Fluids bolus 0, then 1000 mL/hr, administered: 08/26/2016 2:43:00 PM NICODERM [TOPICAL] Topical 21 mg, administered: 08/26/2016 2:56:00 PM Ceftriaxone [IVPB] IVPB bolus 0, then 2 gm 150 mL/hr, administered: 08/26/2016 3:35:00 PM The following Medications were prescribed to the patient: Prednisone 20 mg: take 2 orally every day for 5 days. Dispense ten (10). No refills. -- Gayatri Gomes PA-C Levaquin 500 mg: take 1 tab orally every day for 10 days. No refills. Substitution is permissible. -- Gayatri Gomes PA-C Tessalon Perles 100 mg: take 1 orally every 8 hours as needed for cough. Dispense twenty (20). No refills. Substitution is permissible. -- Gayatri Gomes PA-C Flovent HFA oral inhaler 220 mcg/spray: inhale 2 puffs every 24 hours for 4 weeks. Rinse mouth after use. Dispense one (1) unit. One refill. Substitution is permissible. -- Gayatri Gomes PA-C
--- NOTE | 2016-08-27 00:39 | ED DISCHARGE INSTRUCTIONS ---
Patient: CIERA VELAZQUEZ General Instructions [facility] VisitID: [id number] [place] [address] 61y, F Registration Date/Time: 08/26/2016 Moderate persistent asthma with an acute exacerbation and pneumonia. No status asthmaticus. Acute exacerbation of COPD (chronic bronchitis) Bacterial pneumonia with hypoxemia. Vital signs recorded and reviewed; empiric antibiotics given in the ED and prescribed. pt admitted to Dr. Estes. INSTRUCTIONS No strenuous activity. Rest. Drink plenty of fluids. Other diet: avoid all dairy and corn and soy and wheat. Do not smoke. (you have a right upper lobe pneumonia. you have been given Levaquin 500mg daily, as well as a course of prednisone. it is highly recommended that you stop smoking. follow up with your primary care provider this coming week. if you do not improve, you should return to the ER.). Warnings: Further evaluation is necessary. It is very important to follow up with a physician. GENERAL WARNINGS: Return or contact your physician immediately if your condition worsens or changes unexpectedly, if not improving as expected, or if other problems arise. Specifically return if breathing difficulty worsens or fails to improve. Your Current Medications: CONTINUE TAKING THE FOLLOWING MEDICATIONS: Albuterol Sulfate HFA Inhalation : 1 puff 4x a day, prn. Singulair Oral : 1 daily. Prescription Medications: Prednisone 20 mg: take 2 orally every day for 5 days. Dispense ten (10). No refills. Levaquin 500 mg: take 1 tab orally every day for 10 days. No refills. Substitution is permissible. Tessalon Perles 100 mg: take 1 orally every 8 hours as needed for cough. Dispense twenty (20). No refills. Substitution is permissible. Flovent HFA oral inhaler 220 mcg/spray: inhale 2 puffs every 24 hours for 4 weeks. Rinse mouth after use. Dispense one (1) unit. One refill. Substitution is permissible. Follow-up: Follow up with your doctor Sunday even if well. Reason for referral: pneumonia, copd, smoker. Understanding of the discharge instructions verbalized by patient and family. ADDITIONAL INFORMATION Bronchitis (Adult: Abx Tx) BRONCHITIS is an infection of the air passages (bronchial tubes). It often occurs during the common cold. Symptoms include cough with mucus (phlegm) and low-grade fever. Bronchitis usually lasts 7-14 days. Mild cases can be treated with simple home remedies. More severe infection is treated with an antibiotic. Home Care: If symptoms are severe, rest at home for the first 2-3 days. When you resume activity, don't let yourself get too tired. Do not smoke. Avoid being exposed to the smoke of others. You may use acetaminophen (Tylenol) or ibuprofen (Motrin, Advil) to control fever or pain, unless another medicine was prescribed for this. [NOTE: If you have chronic liver or kidney disease or ever had a stomach ulcer or GI bleeding, talk with your doctor before using these medicines.] Your appetite may be poor, so a light diet is fine. Avoid dehydration by drinking 6-8 glasses of fluids per day (water, soft, drinks, juices, tea, soup, etc.). Extra fluids will help loosen secretions in the lungs. Evlb-ahr-knqkkzf cough medicines that containdextromethorphan(such as Robitussin DM) and decongestants (Actifed or Sudafed) may help relieve cough and congestion. [NOTE: Do not use decongestants if you have high blood pressure.] Finish all antibiotic medicine, even if you are feeling better after only a few days. Follow Up with your doctor or as directed if you dont start to feel better after three days. [NOTE: If you are age 65 or older, or if you have chronic asthma or COPD, we recommend a PNEUMOCOCCAL VACCINATION every five years and a yearly INFLUENZAVACCINATION (FLU-SHOT) every . Ask your doctor about this. If you had an X-ray, a radiologist will review it. You will be notified of any new findings that may affect your care.] Get Prompt Medical Attention if any of the following occur: Fever over 100.4F (38.0C) for more than three days Trouble breathing, wheezing or pain with breathing Coughing up blood or increased amounts of colored sputum Weakness, drowsiness, headache, facial pain, ear pain or a stiff neck Pneumonia (Adult) Pneumonia is an infection deep within the lung, in the small air sacs (alveoli). It may be due to a virus or bacteria and is usually treated with an antibiotic. Severe cases require treatment in the hospital. Milder cases can be treated at home. Symptoms usually start to improve during the first2 days of treatment. Home Care: Rest at home for the first 23 days or until you feel stronger. When resuming activity, dont let yourself become overly tired. Avoid exposure to cigarette smoke (yours or others). You may use acetaminophen (Tylenol) or ibuprofen (Motrin, Advil) to control fever or pain, unless another medicine was prescribed. [NOTE: If you have chronic liver or kidney disease or ever had a stomach ulcer or GI bleeding, talk with your doctor before using these medicines.] (Aspirin should never be used in anyone under 18 years of age who is ill with a fever. It may cause severe liver damage.) Your appetite may be poor so a light diet is fine. Keep well hydrated by drinking 68 glasses of fluids per day (water, sport drinks such as Gatorade, sodas without caffeine, juices, tea, soup, etc.). This will help loosen secretions in the lung, making it easier for you to cough up the phlegm (sputum). If you also have heart or kidney disease, check with your doctor before you drink extra amounts of fluids. Finish all antibiotic medicine prescribed, even if you are feeling better after a few days. Follow Up with your doctor in the next 23 days (or as advised) to be sure you are responding properly to the medicine. [NOTE: If you are age 65 or older, or if you have chronic lung disease (asthma, emphysema or COPD), we recommendthe pneumococcal vaccination and a yearlyinfluenzavaccination(flu-shot) every . Ask your doctor about this.] Get Prompt Medical Attention if any of the following occur: Not getting better within the first 48 hours of treatment Increasing shortness of breath or rapid breathing (over 25 breaths/minute) Coughing up blood or increasing chest pain with breathing Fever of 100.4F (38C) oral or higher, not better with fever medication Increasing weakness, dizziness or fainting Increasing thirst or dry mouth Sinus pain, headache or a stiff neck Chest pain not caused by coughing Prednisone Oral tablet What is this medicine? PREDNISONE (PRED ni sone) is a corticosteroid. It is commonly used to treat inflammation of the skin, joints, lungs, and other organs. Common conditions treated include asthma, allergies, and arthritis. It is also used for other conditions, such as blood disorders and diseases of the adrenal glands. How should I use this medicine? Take this medicine by mouth with a glass of water. Follow the directions on the prescription label. Take this medicine with food. If you are taking this medicine once a day, take it in the morning. Do not take more medicine than you are told to take. Do not suddenly stop taking your medicine because you may develop a severe reaction. Your doctor will tell you how much medicine to take. If your doctor wants you to stop the medicine, the dose may be slowly lowered over time to avoid any side effects. Talk to your virtualization consultant regarding the use of this medicine in children. Special care may be needed. What side effects may I notice from receiving this medicine? Side effects that you should report to your doctor or health transitional care liaison as soon as possible: allergic reactions like skin rash, itching or hives, swelling of the face, lips, or tongue changes in emotions or moods changes in vision depressed mood eye pain fever or chills, cough, sore throat, pain or difficulty passing urine increased thirst swelling of ankles, feet Side effects that usually do not require medical attention (report to your doctor or health transitional care liaison if they continue or are bothersome): confusion, excitement, restlessness headache nausea, vomiting skin problems, acne, thin and shiny skin trouble sleeping weight gain What may interact with this medicine? Do not take this medicine with any of the following medications: metyrapone mifepristone This medicine may also interact with the following medications: aminoglutethimide amphotericin B aspirin and aspirin-like medicines barbiturates certain medicines for diabetes, like glipizide or glyburide cholestyramine cholinesterase inhibitors cyclosporine digoxin diuretics ephedrine female hormones, like estrogens and control pills isoniazid ketoconazole NSAIDS, medicines for pain and inflammation, like ibuprofen or naproxen phenytoin rifampin toxoids vaccines warfarin What if I miss a dose? If you miss a dose, take it as soon as you can. If it is almost time for your next dose, talk to your doctor or health transitional care liaison. You may need to miss a dose or take an extra dose. Do not take double or extra doses without advice. Where should I keep my medicine? Keep out of the reach of children. Store at room temperature between 15 and 30 degrees C (59 and 86 degrees F). Protect from light. Keep container tightly closed. Throw away any unused medicine after the expiration date. What should I tell my health care provider before I take this medicine? They need to know if you have any of these conditions: Adore's syndrome diabetes glaucoma heart disease high blood pressure infection (especially a virus infection such as chickenpox, cold sores, or herpes) kidney disease liver disease mental illness myasthenia gravis osteoporosis seizures stomach or intestine problems thyroid disease an unusual or allergic reaction to lactose, prednisone, other medicines, foods, dyes, or preservatives or trying to get breast-feeding What should I watch for while using this medicine? Visit your doctor or health transitional care liaison for regular checks on your progress. If you are taking this medicine over a prolonged period, carry an identification card with your name and address, the type and dose of your medicine, and your doctor's name and address. This medicine may increase your risk of getting an infection. Tell your doctor or health transitional care liaison if you are around anyone with measles or chickenpox, or if you develop sores or blisters that do not heal properly. If you are going to have surgery, tell your doctor or health transitional care liaison that you have taken this medicine within the last twelve months. Ask your doctor or health transitional care liaison about your diet. You may need to lower the amount of salt you eat. This medicine may affect blood sugar levels. If you have diabetes, check with your doctor or health transitional care liaison before you change your diet or the dose of your diabetic medicine. You have been given the following additional information: Bronchitis, Antiobiotic Treatment (Adult) Pneumonia (Adult) Prednisone Oral tablet No strenuous activity. Rest. (Electronically signed by Gayatri Gomes PA-C 08/27/2016 0:38)
--- NOTE | 2016-08-27 00:39 | ED DISCHARGE INSTRUCTIONS ---
Patient: CIERA VELAZQUEZ General Instructions [facility] VisitID: [id number] [place] [address] 61y, F Registration Date/Time: 08/26/2016 Moderate persistent asthma with an acute exacerbation and pneumonia. No status asthmaticus. Acute exacerbation of COPD (chronic bronchitis) Bacterial pneumonia with hypoxemia. Vital signs recorded and reviewed; empiric antibiotics given in the ED and prescribed. pt admitted to Dr. Estes. INSTRUCTIONS No strenuous activity. Rest. Drink plenty of fluids. Other diet: avoid all dairy and corn and soy and wheat. Do not smoke. (you have a right upper lobe pneumonia. you have been given Levaquin 500mg daily, as well as a course of prednisone. it is highly recommended that you stop smoking. follow up with your primary care provider this coming week. if you do not improve, you should return to the ER.). Warnings: Further evaluation is necessary. It is very important to follow up with a physician. GENERAL WARNINGS: Return or contact your physician immediately if your condition worsens or changes unexpectedly, if not improving as expected, or if other problems arise. Specifically return if breathing difficulty worsens or fails to improve. Your Current Medications: CONTINUE TAKING THE FOLLOWING MEDICATIONS: Albuterol Sulfate HFA Inhalation : 1 puff 4x a day, prn. Singulair Oral : 1 daily. Prescription Medications: Prednisone 20 mg: take 2 orally every day for 5 days. Dispense ten (10). No refills. Levaquin 500 mg: take 1 tab orally every day for 10 days. No refills. Substitution is permissible. Tessalon Perles 100 mg: take 1 orally every 8 hours as needed for cough. Dispense twenty (20). No refills. Substitution is permissible. Flovent HFA oral inhaler 220 mcg/spray: inhale 2 puffs every 24 hours for 4 weeks. Rinse mouth after use. Dispense one (1) unit. One refill. Substitution is permissible. Follow-up: Follow up with your doctor Sunday even if well. Reason for referral: pneumonia, copd, smoker. Understanding of the discharge instructions verbalized by patient and family. ADDITIONAL INFORMATION Bronchitis (Adult: Abx Tx) BRONCHITIS is an infection of the air passages (bronchial tubes). It often occurs during the common cold. Symptoms include cough with mucus (phlegm) and low-grade fever. Bronchitis usually lasts 7-14 days. Mild cases can be treated with simple home remedies. More severe infection is treated with an antibiotic. Home Care: If symptoms are severe, rest at home for the first 2-3 days. When you resume activity, don't let yourself get too tired. Do not smoke. Avoid being exposed to the smoke of others. You may use acetaminophen (Tylenol) or ibuprofen (Motrin, Advil) to control fever or pain, unless another medicine was prescribed for this. [NOTE: If you have chronic liver or kidney disease or ever had a stomach ulcer or GI bleeding, talk with your doctor before using these medicines.] Your appetite may be poor, so a light diet is fine. Avoid dehydration by drinking 6-8 glasses of fluids per day (water, soft, drinks, juices, tea, soup, etc.). Extra fluids will help loosen secretions in the lungs. Zlys-xyy-ybkrbaw cough medicines that containdextromethorphan(such as Robitussin DM) and decongestants (Actifed or Sudafed) may help relieve cough and congestion. [NOTE: Do not use decongestants if you have high blood pressure.] Finish all antibiotic medicine, even if you are feeling better after only a few days. Follow Up with your doctor or as directed if you dont start to feel better after three days. [NOTE: If you are age 65 or older, or if you have chronic asthma or COPD, we recommend a PNEUMOCOCCAL VACCINATION every five years and a yearly INFLUENZAVACCINATION (FLU-SHOT) every . Ask your doctor about this. If you had an X-ray, a radiologist will review it. You will be notified of any new findings that may affect your care.] Get Prompt Medical Attention if any of the following occur: Fever over 100.4F (38.0C) for more than three days Trouble breathing, wheezing or pain with breathing Coughing up blood or increased amounts of colored sputum Weakness, drowsiness, headache, facial pain, ear pain or a stiff neck Pneumonia (Adult) Pneumonia is an infection deep within the lung, in the small air sacs (alveoli). It may be due to a virus or bacteria and is usually treated with an antibiotic. Severe cases require treatment in the hospital. Milder cases can be treated at home. Symptoms usually start to improve during the first2 days of treatment. Home Care: Rest at home for the first 23 days or until you feel stronger. When resuming activity, dont let yourself become overly tired. Avoid exposure to cigarette smoke (yours or others). You may use acetaminophen (Tylenol) or ibuprofen (Motrin, Advil) to control fever or pain, unless another medicine was prescribed. [NOTE: If you have chronic liver or kidney disease or ever had a stomach ulcer or GI bleeding, talk with your doctor before using these medicines.] (Aspirin should never be used in anyone under 18 years of age who is ill with a fever. It may cause severe liver damage.) Your appetite may be poor so a light diet is fine. Keep well hydrated by drinking 68 glasses of fluids per day (water, sport drinks such as Gatorade, sodas without caffeine, juices, tea, soup, etc.). This will help loosen secretions in the lung, making it easier for you to cough up the phlegm (sputum). If you also have heart or kidney disease, check with your doctor before you drink extra amounts of fluids. Finish all antibiotic medicine prescribed, even if you are feeling better after a few days. Follow Up with your doctor in the next 23 days (or as advised) to be sure you are responding properly to the medicine. [NOTE: If you are age 65 or older, or if you have chronic lung disease (asthma, emphysema or COPD), we recommendthe pneumococcal vaccination and a yearlyinfluenzavaccination(flu-shot) every . Ask your doctor about this.] Get Prompt Medical Attention if any of the following occur: Not getting better within the first 48 hours of treatment Increasing shortness of breath or rapid breathing (over 25 breaths/minute) Coughing up blood or increasing chest pain with breathing Fever of 100.4F (38C) oral or higher, not better with fever medication Increasing weakness, dizziness or fainting Increasing thirst or dry mouth Sinus pain, headache or a stiff neck Chest pain not caused by coughing Prednisone Oral tablet What is this medicine? PREDNISONE (PRED ni sone) is a corticosteroid. It is commonly used to treat inflammation of the skin, joints, lungs, and other organs. Common conditions treated include asthma, allergies, and arthritis. It is also used for other conditions, such as blood disorders and diseases of the adrenal glands. How should I use this medicine? Take this medicine by mouth with a glass of water. Follow the directions on the prescription label. Take this medicine with food. If you are taking this medicine once a day, take it in the morning. Do not take more medicine than you are told to take. Do not suddenly stop taking your medicine because you may develop a severe reaction. Your doctor will tell you how much medicine to take. If your doctor wants you to stop the medicine, the dose may be slowly lowered over time to avoid any side effects. Talk to your proctologist regarding the use of this medicine in children. Special care may be needed. What side effects may I notice from receiving this medicine? Side effects that you should report to your doctor or health animal care giver as soon as possible: allergic reactions like skin rash, itching or hives, swelling of the face, lips, or tongue changes in emotions or moods changes in vision depressed mood eye pain fever or chills, cough, sore throat, pain or difficulty passing urine increased thirst swelling of ankles, feet Side effects that usually do not require medical attention (report to your doctor or health animal care giver if they continue or are bothersome): confusion, excitement, restlessness headache nausea, vomiting skin problems, acne, thin and shiny skin trouble sleeping weight gain What may interact with this medicine? Do not take this medicine with any of the following medications: metyrapone mifepristone This medicine may also interact with the following medications: aminoglutethimide amphotericin B aspirin and aspirin-like medicines barbiturates certain medicines for diabetes, like glipizide or glyburide cholestyramine cholinesterase inhibitors cyclosporine digoxin diuretics ephedrine female hormones, like estrogens and control pills isoniazid ketoconazole NSAIDS, medicines for pain and inflammation, like ibuprofen or naproxen phenytoin rifampin toxoids vaccines warfarin What if I miss a dose? If you miss a dose, take it as soon as you can. If it is almost time for your next dose, talk to your doctor or health animal care giver. You may need to miss a dose or take an extra dose. Do not take double or extra doses without advice. Where should I keep my medicine? Keep out of the reach of children. Store at room temperature between 15 and 30 degrees C (59 and 86 degrees F). Protect from light. Keep container tightly closed. Throw away any unused medicine after the expiration date. What should I tell my health care provider before I take this medicine? They need to know if you have any of these conditions: Adore's syndrome diabetes glaucoma heart disease high blood pressure infection (especially a virus infection such as chickenpox, cold sores, or herpes) kidney disease liver disease mental illness myasthenia gravis osteoporosis seizures stomach or intestine problems thyroid disease an unusual or allergic reaction to lactose, prednisone, other medicines, foods, dyes, or preservatives or trying to get breast-feeding What should I watch for while using this medicine? Visit your doctor or health animal care giver for regular checks on your progress. If you are taking this medicine over a prolonged period, carry an identification card with your name and address, the type and dose of your medicine, and your doctor's name and address. This medicine may increase your risk of getting an infection. Tell your doctor or health animal care giver if you are around anyone with measles or chickenpox, or if you develop sores or blisters that do not heal properly. If you are going to have surgery, tell your doctor or health animal care giver that you have taken this medicine within the last twelve months. Ask your doctor or health animal care giver about your diet. You may need to lower the amount of salt you eat. This medicine may affect blood sugar levels. If you have diabetes, check with your doctor or health animal care giver before you change your diet or the dose of your diabetic medicine. You have been given the following additional information: Bronchitis, Antiobiotic Treatment (Adult) Pneumonia (Adult) Prednisone Oral tablet No strenuous activity. Rest. (Electronically signed by Gayatri Gomes PA-C 08/27/2016 0:38)
--- NOTE | 2016-08-27 00:39 | ED MAR SUMMARY ---
..... Medication Administration Record [facility] [address] [place] [address] Patient: CIERA VELAZQUEZ Visit ID: [id number] 61y, F Weight: 74.8 kg Height/Length: 71 in BMI: 23 ALLERGIES: Latex, Seafood Given 13:10 08/26/2016 Tiffanie Hutchinson R.N. Medication Administered: DUONEB [NEB TX] (IPRATROPIUM-ALBUTEROL), Dose: 1 unit dose Nebulizer Neb TX. Medication Ordered: DuoNeb Neb Tx 1 unit dose (NOW). Given 13:20 08/26/2016 Tiffanie Hutchinson R.N. Medication Administered: DUONEB [NEB TX] (IPRATROPIUM-ALBUTEROL), Dose: 1 unit dose Nebulizer Neb TX. Medication Ordered: DuoNeb Neb Tx 1 unit dose (NOW). Given 13:56 08/26/2016 Norma Oconnell R.N. Medication Administered: LEVOFLOXACIN [PO], Dose: 500 mg PO. Medication Ordered: Levofloxacin PO 500 mg (NOW). Given 13:56 08/26/2016 Norma Oconnell R.N. Medication Administered: PREDNISONE [PO], Dose: 40 mg PO. Medication Ordered: Prednisone PO 40 mg (NOW). Start 14:43 08/26/2016 Norma Oconnell R.N., Stop 15:36 08/26/2016 Tiffanie Hutchinson R.N. Medication Administered: IV NS (SALINE), Dose: IV Fluids, Rate: 1000 mL/hr, Dispensed: 1000 mL bag, Site: #1 right hand. Medication Ordered: IV NS with Normal Saline 1 Liter: initial bolus none -, then 1000 mL/hr for X1 (NOW). Given 14:56 08/26/2016 Norma Oconnell R.N. Medication Administered: NICODERM [TOPICAL], Dose: 21 mg Topical. Medication Ordered: Nicoderm Topical 21 mg (NOW). Start 15:35 08/26/2016 Tiffanie Hutchinson R.N. Medication Administered: CEFTRIAXONE [IVPB], Dose: 2 gm IVPB over 1 hour(s), Rate: 150 mL/hr, Dispensed: 50 mL bag, Site: #1 right hand. Medication Ordered: Ceftriaxone IV 2 gm/50mL (NOW).
--- NOTE | 2016-08-27 00:39 | ED MAR SUMMARY ---
..... Medication Administration Record [facility] [address] [place] [address] Patient: CIERA VELAZQUEZ Visit ID: [id number], F Weight: 74.8 kg Height/Length: 71 in BMI: 23 ALLERGIES: Latex, Seafood Given 13:10 08/26/2016 Tiffanie Hutchinson R.N. Medication Administered: DUONEB [NEB TX] (IPRATROPIUM-ALBUTEROL), Dose: 1 unit dose Nebulizer Neb TX. Medication Ordered: DuoNeb Neb Tx 1 unit dose (NOW). Given 13:20 08/26/2016 Tiffanie Hutchinson R.N. Medication Administered: DUONEB [NEB TX] (IPRATROPIUM-ALBUTEROL), Dose: 1 unit dose Nebulizer Neb TX. Medication Ordered: DuoNeb Neb Tx 1 unit dose (NOW). Given 13:56 08/26/2016 Norma Oconnell R.N. Medication Administered: LEVOFLOXACIN [PO], Dose: 500 mg PO. Medication Ordered: Levofloxacin PO 500 mg (NOW). Given 13:56 08/26/2016 Norma Oconnell R.N. Medication Administered: PREDNISONE [PO], Dose: 40 mg PO. Medication Ordered: Prednisone PO 40 mg (NOW). Start 14:43 08/26/2016 Norma Oconnell R.N., Stop 15:36 08/26/2016 Tiffanie Hutchinson R.N. Medication Administered: IV NS (SALINE), Dose: IV Fluids, Rate: 1000 mL/hr, Dispensed: 1000 mL bag, Site: #1 right hand. Medication Ordered: IV NS with Normal Saline 1 Liter: initial bolus none -, then 1000 mL/hr for X1 (NOW). Given 14:56 08/26/2016 Norma Oconnell R.N. Medication Administered: NICODERM [TOPICAL], Dose: 21 mg Topical. Medication Ordered: Nicoderm Topical 21 mg (NOW). Start 15:35 08/26/2016 Tiffanie Hutchinson R.N. Medication Administered: CEFTRIAXONE [IVPB], Dose: 2 gm IVPB over 1 hour(s), Rate: 150 mL/hr, Dispensed: 50 mL bag, Site: #1 right hand. Medication Ordered: Ceftriaxone IV 2 gm/50mL (NOW).
[2016-08-27 02:21] VITALS: BP 113/66
[2016-08-27] MEDS ORDERED: SINGULAIR10 MG PO (05:56)
[2016-08-27] MEDS ORDERED: VENTOLIN HFA IN (05:57)
[2016-08-27 06:27] VITALS: BP 111/52
[2016-08-27 10:25] VITALS: BP 108/51
[2016-08-27 14:18] VITALS: BP 105/50
--- NOTE | 2016-08-27 14:28 | Progress Note ---
Subjective General Patient seen and examined. Patient has slight wheezes and ronchi, patient is requiring supplemental oxygen due to ongoing disease process. Constitutional Denies: Fever, Chills, Sweats, Weakness, Malaise, Other. Eyes Denies: Pain, Vision Change, Conjunctival Inflammation, Eyelid Inflammation, Redness, Other. Respiratory Cough, SOB w/exertion, Wheezing. Denies: Dry, Hemoptysis, Pleuritic Pain, Sputum, Other. Cardiovascular Denies: Chest Pain, Palpitations, Orthopnea, PND, Edema, Light-headedness, Other. Gastrointestinal Denies: Nausea, Vomiting, Abdominal Pain, Diarrhea, Constipation, Melena, Hematochezia, Other. Genitourinary Denies: Dysuria, Frequency, Incontinence, Hematuria, Retention, Other. Musculoskeletal Denies: Neck Pain, Shoulder Pain, Arm Pain, Back Pain, Hand Pain, Leg Pain, Foot Pain, Other. Neurological Denies: Weakness, Numbness, Incoordination, Change in speech, Confusion, Seizures, Other. Physical Exam Vital Signs / I&Os Vital Signs Date Time Temp Pulse Resp B/P Pulse O2 O2 Flow FiO2 Ox Delivery Rate 08/27 1418 97.9 74 20 105/50 90 Nasal 2.0 Cannula 08/27 1306 3.0 08/27 1025 97.9 66 20 108/51 89 Nasal 3.0 Cannula 08/27 0809 Nasal 3.0 Cannula 08/27 0733 2.0 08/27 0627 98.1 89 19 111/52 92 Nasal 3.0 Cannula 08/27 0415 Nasal 3.0 Cannula 08/27 0410 95 Nasal 3.0 Cannula 08/27 0346 91 08/27 0311 2.0 08/27 0221 98.1 84 16 113/66 88 Room Air 2.0 08/27 0106 2.0 08/26 2218 97.7 87 16 103/59 92 Room Air 2.0 08/26 2010 Nasal 2.0 Cannula 08/26 1958 2.0 08/26 1858 97.9 102 16 133/68 95 Room Air 2.0 08/26 1753 3.0 I&O 08/26 0800 08/26 1600 08/27 0000 Intake Total 300 Output Total Balance 300 General Appearance Alert, Oriented X3, No acute distress HEENT Atraumatic, PERRLA, Moist mucous membranes Lungs Clear to auscultation Cardiovascular Regular rate and rhythm, No murmurs, gallops, rubs Abdomen Soft, No tenderness Extremities No edema, Normal pulses, No tenderness Skin No Breakdown, No Significant Lesions Neurological Normal speech, Sensation intact, Cranial nerves intact, No lateralizing signs Psych/Mental Status Mood normal LAB Results Laboratory Tests 08/26 08/27 08/27 1457 0615 0615 Chemistry Plasma Sodium (136 - 145 mmol/L) 137 Plasma Potassium (3.5 - 5.1 mmol/L) 4.3 Plasma Chloride (98 - 107 mmol/L) 105 CO2 (Enzymatic) (21 - 32 mmol/L) 26 BUN (7 - 18 mg/dL) 16 Creatinine (0.6 - 1.3 mg/dL) 0.8 Est GFR ( Amer) (mL/min) >60 Est GFR (Non-Af Amer) (mL/min) >60 Glucose (70 - 110 mg/dL) 267 Lactic Acid (0.4 - 2.0 mmol/L) 2.0 1.6 Plasma Calcium (8.5 - 10.1 mg/dL) 8.8 Total Bilirubin (0.0 - 1.0 mg/dL) 0.2 AST (15 - 37 U/L) 12 ALT (12 - 78 U/L) 21 Alkaline Phosphatase (46 - 116 U/L) 140 Total Protein (6.4 - 8.2 g/dL) 6.4 Albumin (3.3 - 5.0 g/dL) 2.3 Hematology WBC (4.5 - 11.5 K/uL) 11.1 RBC (4.00 - 5.20 M/uL) 3.79 Hgb (12.0 - 16.0 gm/dL) 11.6 Hct (36.0 - 46.0 %) 34.6 MCV (80 - 100 fL) 91 MCH (26 - 34 pg) 31 RDW (11.6 - 14.8 %) 13.4 Neut % (Auto) (50 - 75 %) 93.9 Lymph % (Auto) (25 - 40 %) 5.4 [place] % (Auto) (3 - 14 %) 0.7 Eos % (Auto) (0 - 4 %) 0 Baso % (Auto) (0 - 2 %) 0 Plt Count, EDTA (150 - 400 K/uL) 244 PUBS MCHC (31 - 37 g/dL) 34 Microbiology Date/Time Procedure - Status Source Growth 08/27 003 Respiratory Culture - RES SPUTUM 08/27 003 Culture and Gram Stain - RES SPUTUM 08/26 1457 Blood Culture - RECD BLOOD Assessment and Plan Problem List 1. COPD (chronic obstructive pulmonary disease) Plan - currently patient air exchange is appropriate - will keep on current regimen of solumedrol 40 mg q8 - will provide duonebs as schedluled - abvise smoking cessation 2. SIRS (systemic inflammatory response syndrome) Plan - blood cultures have yet to grow anything - will keep on current antibioitic regimen - no fever spikes or hypotension noted - will continue to trend vitals and blood work
[2016-08-27 18:27] VITALS: BP 109/53
[2016-08-27 22:17] VITALS: BP 108/54
[2016-08-28 02:51] VITALS: BP 105/45
[2016-08-28 06:52] VITALS: BP 123/63
[2016-08-28 10:22] VITALS: BP 112/60
--- NOTE | 2016-08-28 13:33 | Progress Note ---
Subjective General Patient seen and examined. Patients breath sounds are improved today however patient is still desaturating on ambulation and may require additional oxgyen at home. Constitutional Denies: Fever, Chills, Sweats, Weakness, Malaise, Other. Eyes Denies: Pain, Vision Change, Conjunctival Inflammation, Eyelid Inflammation, Redness, Other. Respiratory Cough, Dry, Wheezing. Denies: SOB w/exertion, Hemoptysis, Pleuritic Pain, Sputum, Other. Cardiovascular Denies: Chest Pain, Palpitations, Orthopnea, PND, Edema, Light-headedness, Other. Gastrointestinal Denies: Nausea, Vomiting, Abdominal Pain, Diarrhea, Constipation, Melena, Hematochezia, Other. Genitourinary Denies: Dysuria, Frequency, Incontinence, Hematuria, Retention, Other. Musculoskeletal Denies: Neck Pain, Shoulder Pain, Arm Pain, Back Pain, Hand Pain, Leg Pain, Foot Pain, Other. Neurological Denies: Weakness, Numbness, Incoordination, Change in speech, Confusion, Seizures, Other. Physical Exam Vital Signs / I&Os Vital Signs Date Time Temp Pulse Resp B/P Pulse O2 O2 Flow FiO2 Ox Delivery Rate 08/28 1022 97.7 67 20 112/60 92 Nasal 2.0 Cannula 08/28 0923 66 93 Nasal 2.0 Cannula 08/28 0921 106 83 Room Air 08/28 0916 90 08/28 0915 88 Room Air 08/28 0802 96 Room Air 08/28 0723 2.0 08/28 0652 98.4 61 21 123/63 94 Nasal 2.0 Cannula 08/28 0251 98.2 70 18 105/45 93 Nasal 2.0 Cannula 08/28 0120 2.0 08/27 2217 98.2 65 18 108/54 94 Nasal 2.0 Cannula 08/27 2005 Nasal 2.0 Cannula 08/27 1958 2.0 08/27 1827 97.9 75 20 109/53 92 Nasal 2.0 Cannula 08/27 1714 2.0 08/27 1418 97.9 74 20 105/50 90 Nasal 2.0 Cannula I&O 08/27 0800 08/27 1600 08/28 0000 Intake Total 2188 1600 1500 Output Total 600 325 500 Balance 1588 1275 1000 General Appearance Alert, Oriented X3, No acute distress HEENT Atraumatic, Moist mucous membranes Lungs - bialteral ronchi - improving wheezes throughout all lung lopez Neck Supple, No JVD, No thyromegaly Cardiovascular Regular rate and rhythm, Normal S1 and S2, No murmurs, gallops, rubs Abdomen Normal bowel sounds, Soft, No rebound, No masses, No hepatosplenomegaly Extremities No clubbing, No edema, Strength = upper ext's, Strength = lower ext' s Skin No Breakdown Neurological Normal speech, Normal tone, Cranial nerves intact Psych/Mental Status Mood normal LAB Results Laboratory Tests 08/28 0511 Hematology WBC (4.5 - 11.5 K/uL) 12.2 RBC (4.00 - 5.20 M/uL) 3.82 Hgb (12.0 - 16.0 gm/dL) 11.5 Hct (36.0 - 46.0 %) 34.9 MCV (80 - 100 fL) 92 MCH (26 - 34 pg) 30 RDW (11.6 - 14.8 %) 13.6 Neut % (Auto) (50 - 75 %) 89.7 Lymph % (Auto) (25 - 40 %) 6.8 [place] % (Auto) (3 - 14 %) 3.5 Eos % (Auto) (0 - 4 %) 0 Baso % (Auto) (0 - 2 %) 0 Plt Count, EDTA (150 - 400 K/uL) 288 PUBS MCHC (31 - 37 g/dL) 33 Assessment and Plan Problem List 1. COPD (chronic obstructive pulmonary disease) Plan - breathing is improved however patient persistenly desaturating on ambulation - overlapping pneumonia with copd exacerbation could be the reason behind this - will continue with IV steroids for another day, will reassess the need for additional oxygen - c/w duonebs as scheduled 2. SOB (shortness of breath) Plan - secondary to copd exacerbation will c/w above 3. SIRS (systemic inflammatory response syndrome) Plan - c/w antibiotics at the current dose
[2016-08-28 14:45] VITALS: BP 126/64
[2016-08-28 18:11] VITALS: BP 144/74
[2016-08-28 22:30] VITALS: BP 110/58
[2016-08-29 03:06] VITALS: BP 122/56
[2016-08-29 06:16] VITALS: BP 142/87
--- NOTE | 2016-08-29 07:06 | Progress Note ---
Subjective General Patient is doing well at this time compared to admit. Has been doing a little better. Has wheezing sob still. Physical Exam Vital Signs / I&Os Vital Signs Date Time Temp Pulse Resp B/P Pulse O2 O2 Flow FiO2 Ox Delivery Rate 08/29 0616 97.9 65 20 142/87 93 Room Air 0.0 08/29 0306 98.1 61 18 122/56 91 Room Air 08/29 0035 2.0 08/28 2230 98.8 68 14 110/58 90 Room Air 08/28 1811 99.0 74 16 144/74 91 Room Air 08/28 1445 97.9 72 16 126/64 92 Room Air 08/28 1022 97.7 67 20 112/60 92 Nasal 2.0 Cannula 08/28 0923 66 93 Nasal 2.0 Cannula 08/28 0921 106 83 Room Air 08/28 0916 90 08/28 0915 88 Room Air 08/28 0802 96 Room Air 08/28 0723 2.0 I&O 08/29 0000 08/28 1600 08/28 0800 Intake Total 570 1305 2298 Output Total 3021 033 1657 Balance -107 143 4732 General Appearance Alert, Cooperative HEENT Normal exam Lungs diffuse wheezes moderately tight. Cardiovascular Regular rate and rhythm, No murmurs, gallops, rubs Extremities No edema Assessment and Plan Problem List 1. COPD (chronic obstructive pulmonary disease) Plan hypoxia that is improving 2. SOB (shortness of breath) Plan Has been with sob that is improved but still worse
--- NOTE | 2016-08-29 07:06 | Progress Note ---
Subjective General Patient is doing well at this time compared to admit. Has been doing a little better. Has wheezing sob still. Physical Exam Vital Signs / I&Os Vital Signs Date Time Temp Pulse Resp B/P Pulse O2 O2 Flow FiO2 Ox Delivery Rate 08/29 0616 97.9 65 20 142/87 93 Room Air 0.0 08/29 0306 98.1 61 18 122/56 91 Room Air 08/29 0035 2.0 08/28 2230 98.8 68 14 110/58 90 Room Air 08/28 1811 99.0 74 16 144/74 91 Room Air 08/28 1445 97.9 72 16 126/64 92 Room Air 08/28 1022 97.7 67 20 112/60 92 Nasal 2.0 Cannula 08/28 0923 66 93 Nasal 2.0 Cannula 08/28 0921 106 83 Room Air 08/28 0916 90 08/28 0915 88 Room Air 08/28 0802 96 Room Air 08/28 0723 2.0 I&O 08/29 0000 08/28 1600 08/28 0800 Intake Total 570 1305 2298 Output Total 6477 081 7224 Balance -398 950 2087 General Appearance Alert, Cooperative HEENT Normal exam Lungs diffuse wheezes moderately tight. Cardiovascular Regular rate and rhythm, No murmurs, gallops, rubs Extremities No edema Assessment and Plan Problem List 1. COPD (chronic obstructive pulmonary disease) Plan hypoxia that is improving 2. SOB (shortness of breath) Plan Has been with sob that is improved but still worse
[2016-08-29 11:10] VITALS: BP 143/83
[2016-08-29 14:43] VITALS: BP 142/71
--- NOTE | 2016-08-29 18:13 | Progress Note ---
Subjective General Patient doing a little better. No acute issues. Physical Exam Vital Signs / I&Os Vital Signs Date Time Temp Pulse Resp B/P Pulse O2 O2 Flow FiO2 Ox Delivery Rate 08/29 1443 97.7 80 20 142/71 88 Room Air 0.0 08/29 1110 98.1 72 20 143/83 89 Room Air 0.0 08/29 0802 93 08/29 0616 97.9 65 20 142/87 93 Room Air 0.0 08/29 0306 98.1 61 18 122/56 91 Room Air 08/29 0035 2.0 08/28 2230 98.8 68 14 110/58 90 Room Air I&O 08/29 0000 08/28 1600 08/28 0800 Intake Total 570 1305 2298 Output Total 5565 817 1040 Balance -559 311 6684 General Appearance Alert Lungs coarse BS and wheezes a little better Cardiovascular Regular rate and rhythm Abdomen Soft, No tenderness Extremities Normal exam Assessment and Plan Problem List 1. COPD (chronic obstructive pulmonary disease) Plan Is doing well at this time. If does well overnight then d/c in am 2. SOB (shortness of breath) Plan improving
--- NOTE | 2016-08-29 18:13 | Progress Note ---
Subjective General Patient doing a little better. No acute issues. Physical Exam Vital Signs / I&Os Vital Signs Date Time Temp Pulse Resp B/P Pulse O2 O2 Flow FiO2 Ox Delivery Rate 08/29 1443 97.7 80 20 142/71 88 Room Air 0.0 08/29 1110 98.1 72 20 143/83 89 Room Air 0.0 08/29 0802 93 08/29 0616 97.9 65 20 142/87 93 Room Air 0.0 08/29 0306 98.1 61 18 122/56 91 Room Air 08/29 0035 2.0 08/28 2230 98.8 68 14 110/58 90 Room Air I&O 08/29 0000 08/28 1600 08/28 0800 Intake Total 570 1305 2298 Output Total 3655 702 8032 Balance -269 629 5372 General Appearance Alert Lungs coarse BS and wheezes a little better Cardiovascular Regular rate and rhythm Abdomen Soft, No tenderness Extremities Normal exam Assessment and Plan Problem List 1. COPD (chronic obstructive pulmonary disease) Plan Is doing well at this time. If does well overnight then d/c in am 2. SOB (shortness of breath) Plan improving
[2016-08-29 18:54] VITALS: BP 143/75
[2016-08-29 22:26] VITALS: BP 134/68
[2016-08-30 02:54] VITALS: BP 123/75
[2016-08-30 07:06] VITALS: BP 137/76
--- NOTE | 2016-08-30 07:15 | Discharge Summary ---
Discharge Summary Report Admit Date 08/26/16 Discharge Date 08/30/16 Admission Diagnosis COPD, SIRS,SOB Discharge Diagnosis COPD, hypoxia, SOB Brief History COPD flare, hx of OA and eczema, active smoker who presented with minimal elevated wbc. Lots of wheezes. Hospital Course Treated with inhalers, abx, steroids and improved. Able to walk, talk well without O2; still wheezy. General Appearance Alert, Oriented X3, Cooperative, No acute distress HEENT Atraumatic Lungs diffuse wheezes and upper airway sounds Cardiovascular Regular Rate, No murmurs Abdomen Soft, No tenderness Neurological Normal speech, Strength at 5/5 X4 ext Lab/Imaging Laboratory Tests 08/30 0535 Chemistry Plasma Sodium (136 - 145 mmol/L) 140 Plasma Potassium (3.5 - 5.1 mmol/L) 4.2 Plasma Chloride (98 - 107 mmol/L) 103 CO2 (Enzymatic) (21 - 32 mmol/L) 30 BUN (7 - 18 mg/dL) 23 Creatinine (0.6 - 1.3 mg/dL) 0.8 Est GFR ( Amer) (mL/min) >60 Est GFR (Non-Af Amer) (mL/min) >60 Glucose (70 - 110 mg/dL) 80 Plasma Calcium (8.5 - 10.1 mg/dL) 8.3 Hematology WBC (4.5 - 11.5 K/uL) 11.3 RBC (4.00 - 5.20 M/uL) 4.41 Hgb (12.0 - 16.0 gm/dL) 13.2 Hct (36.0 - 46.0 %) 40.1 MCV (80 - 100 fL) 91 MCH (26 - 34 pg) 30 RDW (11.6 - 14.8 %) 13.6 Neut % (Auto) (50 - 75 %) 71.6 Lymph % (Auto) (25 - 40 %) 19.3 [place] % (Auto) (3 - 14 %) 6.7 Eos % (Auto) (0 - 4 %) 0.3 Baso % (Auto) (0 - 2 %) 2.1 Plt Count, EDTA (150 - 400 K/uL) 362 PUBS MCHC (31 - 37 g/dL) 33 Discharge Instructions/Meds Patient to quit smoking, f/u within 1 week in clinic; continue abx, and steroids short term. Continue inhalers.
[2016-08-30] MEDS ORDERED: ADVAIR DISKU1 IN (07:17)
[2016-08-30] MEDS ORDERED: SPIRIVA18 MCG IN (07:17)
[2016-08-30] MEDS ORDERED: CEFUROXIME AXE250 MG PO (07:18)
[2016-08-30] MEDS ORDERED: PREDNISONE20 MG PO (07:19)
--- NOTE | 2016-08-30 07:20 | Provider's Discharge Care Plan ---
Problem, Goal, Plan Problem List 1. COPD (chronic obstructive pulmonary disease) Instructions: Follow up as needed, Follow up as directed, Take meds as directed 2. SOB (shortness of breath) Instructions: Stop smoking
== END 2016-08-30 11:45 | disposition home or self-care (01) | DRG 190 ==
LOC: ED SRH 12:05 → TRANS SRH 16:21 → ACUTE2 SRH 18:56
PROVIDERS: ADMIT Pediatrics
DX: J44.0 Chronic obstructive pulmonary disease with (acute) lower respiratory infection (principal); J18.9 Pneumonia, unspecified organism; J44.1 Chronic obstructive pulmonary disease with (acute) exacerbation; R09.02 Hypoxemia; F17.210 Nicotine dependence, cigarettes, uncomplicated; Z71.6 Tobacco abuse counseling
CPT/HCPCS: 87115; 90004; 90047; 90065; 90074; 90100; 90127; 90148; 90309; 90469; 90934; 92031; 95059

== ENCOUNTER 2016-09-06 11:33 | Outpatient (CLI) | payer OTHER ==
[~2016-09-06 11:33] MED LIST: ADVAIR DISKU1 IN; CEFUROXIME AXE250 MG PO; PREDNISONE20 MG PO; SINGULAIR10 MG PO; SPIRIVA18 MCG IN; VENTOLIN HFA IN
--- NOTE | 2016-09-06 12:39 | DIAGNOSTIC IMAGING REPORT ---
PROCEDURE: XR CHEST 2 VIEW INDICATION: PNEUMONIA TECHNIQUE: PA and lateral views. COMPARISON: 08/26/2016 chest FINDINGS: Decrease in small right upper and lower lobe infiltrates. Small right pleural effusion. Stable left upper lobe calcified granuloma. Heart size is normal but there is mild pulmonary vascular congestion. Bony thorax is unremarkable. IMPRESSION: 1. Decrease in right upper and lower lobe pneumonia 2. Stable left upper lobe calcified granuloma 3. Mild pulmonary vascular congestion
== END 2016-09-06 23:00 ==
LOC: XR SRH 11:33
DX: J18.9 Pneumonia, unspecified organism (principal)

== ENCOUNTER 2016-09-20 08:45 | Outpatient (CLI) | payer OTHER ==
--- NOTE | 2016-09-20 09:41 | DIAGNOSTIC IMAGING REPORT ---
PROCEDURE: XR CHEST 2 VIEW INDICATION: PNEUMONIA TECHNIQUE: PA and lateral view. COMPARISON: Chest x-ray 09/06/2016. FINDINGS: Hyperinflation. Resolved right upper lobe pneumonia with mild residual atelectasis/scarring. Biapical pleural thickening. Cardiovascular structures are normal. Bony thorax is unremarkable. IMPRESSION: 1. Resolved right upper lobe pneumonia with mild residual atelectasis/scarring. 2. Hyperinflation
== END 2016-09-20 23:00 | disposition home or self-care (01) ==
LOC: XR SRH 08:45
DX: J18.9 Pneumonia, unspecified organism (principal)